=== PATIENT | female | born 1990 | race Caucasian/White ===

== ENCOUNTER 2019-02-28 10:26 | Emergency (ER) | payer OTHER ==
[~2019-02-28] VITALS: Ht 160 cm; Wt 33.0 kg
[~2019-02-28 10:26] MED LIST: ACET325T33 PO; DOCU-216 PO; IBUP800T48 PO
[2019-02-28 10:31] VITALS: Ht 160 cm; Wt 33.0 kg
[2019-02-28] MEDS ORDERED: KETOROLAC 30 MG INJ IV STA (11:33)
[2019-02-28] MEDS ORDERED: SOD CHLORIDE 0.9% 100 ML ONE (13:39)
[2019-02-28] MEDS ORDERED: IOHEXOL 100 ML ONE (13:39)
[2019-02-28] MEDS ORDERED: IBUP-1561 PO (15:25)
--- NOTE | 2019-02-28 15:31 | ERD ---
ER Documentation Chief Complaint Chief Complaint pt is bib family with c/o right sided rib pain since , no cause HPI 28-year-old female patient with a past medical history of ovarian cyst presents to the ED stating that she has some right-sided rib pain that started 3 days ago. Patient reports that she has some pleuritic chest pain. Describes her pain is sharp and is worse when she coughs or breathes. States that it throbs as well and rates it a 9 out of 10. Reports that he had she has not taking any medication. States that when she started to have this pain, she was less active. Denies any nausea, vomiting, diarrhea, abdominal pain, fever, chills. ROS All systems reviewed and are negative except as per history of present illness. Medications Home Meds Active Scripts Ibuprofen* (Motrin*) 400 Mg Tab, 400 MG PO Q6, #30 TAB Prov:IFRAH CHANG PA-C 02/28/19 Ibuprofen* (Motrin*) 800 Mg Tab, 800 MG PO Q6H PRN for MILD PAIN LEVEL 1-3 for 10 Days, TAB otc Prov:JEANETTE VARGAS MD 01/04/19 Docusate Sodium (Dok) 100 Mg Capsule, 100 MG PO BID PRN for CONSTIPATION for 10 Days, CAP Prov:JEANETTE VARGAS MD 01/04/19 Acetaminophen* (Tylenol*) 325 Mg Tablet, 650 MG PO Q6H PRN for .PAIN 1-3 OR TEMP for 7 Days, TAB Prov:JEANETTE VARGAS MD 01/04/19 Allergies Allergies: Coded Allergies: No Known Allergies (Unverified Allergy, Unknown, 02/28/19) PMhx/Soc Medical and Surgical Hx: pt denies Medical Hx, pt denies Surgical Hx History of Surgery: No Anesthesia Reaction: No Hx Respiratory Disorders: No Hx Cardiac Disorders: No Hx Psychiatric Problems: No Hx Miscellaneous Medical Probl: No Hx Alcohol Use: No Hx Substance Use: No Hx Tobacco Use: No Smoking Status: Never smoker FmHx Family History: No diabetes, No coronary disease Physical Exam Vitals Vital Signs Date Temp Pulse Resp B/P (MAP) Pulse Ox O2 O2 Flow FiO2 Time Delivery Rate 02/28/19 98.2 78 18 121/67 100 Room Air 15:34 (85) 02/28/19 100 Room Air 11:56 02/28/19 98.0 86 18 115/67 98 10:31 (83) Physical Exam Const: Bzo-uam-mtsahsdhr, well-nourished. In no acute distress. Head: Atraumatic, normocephalic Eyes: Normal Conjunctiva without injection. No purulent discharge. PERRL. EOMI ENT: Normal external ear. Ear canal without erythema. Tympanic membrane pearly schneider without effusion or bulging. Nasal canal clear with normal turbinates. Moist oropharynx without tonsillar exudates. Non-erythematous pharynx. Uvula midline. No drooling. No trismus. Neck: Full range of motion. No meningismus. No cervical lymphadenopathy. Resp: Clear to auscultation bilaterally. No wheezing, rhonchi, rales, or crackles. No accessory muscle use. No retractions. Cardio: Regular rate and rhythm. No murmurs, rubs or gallops. Abd: Soft, non tender, non distended. Normal bowel sounds. No palpable masses. No rebound tenderness. No guarding. Skin: No petechiae or rashes Back: No midline tenderness. No CVA tenderness. Ext: No cyanosis, or edema. Neur: Awake and alert. Psych: Normal Mood and Affect Results 24 hrs Laboratory Tests Test 02/28/19 11:44 02/28/19 11:49 White Blood Count 7.3 10^3/ul Red Blood Count 4.41 10^6/ul Hemoglobin 13.8 g/dl Hematocrit 42.6 % Mean Corpuscular Volume 96.6 fl Mean Corpuscular Hemoglobin 31.3 pg Mean Corpuscular Hemoglobin Concent 32.4 g/dl Red Cell Distribution Width 12.7 % Platelet Count 286 10^3/UL Mean Platelet Volume 10.5 fl Immature Granulocytes % 0.300 % Neutrophils % 75.1 % Lymphocytes % 17.4 % Monocytes % 5.9 % Eosinophils % 0.5 % Basophils % 0.8 % Nucleated Red Blood Cells % 0.0 /100WBC Immature Granulocytes # 0.020 10^3/ul Neutrophils # 5.5 10^3/ul Lymphocytes # 1.3 10^3/ul Monocytes # 0.4 10^3/ul Eosinophils # 0.0 10^3/ul Basophils # 0.1 10^3/ul Nucleated Red Blood Cells # 0.0 10^3/ul Prothrombin Time 12.3 Sec Prothrombin Time Ratio 1.0 INR International Normalized Ratio 0.90 Activated Partial Thromboplast Time 30.3 Sec D-Dimer 461.39 ng/ml D-Dimer Comment Sodium Level 142 mmol/L Potassium Level 4.4 mmol/L Chloride Level 106 mmol/L Carbon Dioxide Level 27 mmol/L Anion Gap 9 Blood Urea Nitrogen 23 mg/dl Creatinine 0.53 mg/dl Est Glomerular Filtrat Rate mL/min > 60 mL/min Glucose Level 75 mg/dl Calcium Level 9.3 mg/dl Troponin I < 0.012 ng/ml POC Beta HCG, Qualitative NEGATIVE Current Medications Medications Dose Sig/Haja Start Time Status Last (Trade) Ordered Route PRN Stop Time Admin Dose Reason Admin Ketorolac 30 mg ONCE STAT 02/28/19 DC 02/28/19 Tromethamine IV 11:33 11:59 (Toradol) 02/28/19 11:35 Sodium 100 ml @ ud STK-MED 02/28/19 DC 02/28/19 Chloride ONCE .ROUTE 13:39 14:19 02/28/19 13:40 Iohexol 100 ml @ ud STK-MED 02/28/19 DC 02/28/19 ONCE .ROUTE 13:39 14:19 02/28/19 13:40 Procedures/MDM 28-year-old female patient with a past medical history of ovarian cyst presents to ED complaining of right-sided rib pain, chest pain that started 3 days ago. Patient reports that she has been taking oral contraceptives. Patient is at high risk for a pulmonary embolism. PERC rule score was 1 therefore was unable to rule out pulmonary embolism at this time. Discussed with my supervising physician, Dr. Knight who agreed with the management discharge plan. Patient was further worked up with CBC, CMP, UA, urine , chest x-ray, dimer, EKG. Patient's pain and symptoms have improved after treatment with 30 mg IV Toradol. CBC: No leukocytosis. No e/o of systemic infection. No e/o anemia. CMP: No e/o severe acidosis, alkalosis, renal failure, diabetic ketoacidosis, liver disease Lipase within normal limits. Urine: No leukocyte esterase, no nitrites, no hematuria. Urine : Negative D-Dimer 431.6 EKG reviewed and interpreted by Dr. Knight Rate/Rhythm: [82 bpm, Normal Sinus Rhythm] No ectopy, no ST elevations, normal axis. QRS, ST, T-waves: [No changes consistent w/ acute ischemia] Impression: [No evidence of ischemia or arrhythmia] IMPRESSION: No pulmonary embolism. No thoracic aortic aneurysm or dissection. No pneumonia. IMPRESSION: No evidence for active cardiopulmonary disease. D Dimer was slightly elevated at the lower range of normal, therefore CTA was ordered since there is high suspicion of PE. CTA obtained - no evidence of PE. Differentials include pleurisy. Low suspicion for acute myocardial infarction, pneumothorax, pneumonia, cardiac tamponade, Nbdkw-Zpvwyhgln-Qhhpv Syndrome, Brugada Syndrome, AAA, aortic dissection, thoracic aortic dissection, endocarditis, myocarditis, pericarditis, cocaine-related ischemia, Boerhaave's syndrome, cardiac dysrhythmias,meningitis, intracranial bleed, seizure, stroke, TIA or other emergent conditions. Low suspicion for ectopic , ovarian torsion, gastritis, GERD, peptic ulcer disease, cholecystitis, choledocholithiasis, cholangitis, pancreatitis, appendicitis, bowel obstruction, ileus, volvulus, nephrolithiasis, pyelonephritis, hepatitis, perforated viscus, diverticulitis, strangulated/incarcerated hernia, DKA, acute abdomen, mesenteric ischemia or other emergent conditions. Patient appropriate for outpatient management. Diagnosis: Pleuritic Chest Pain Discharge medications: Ibuprofen Follow up with primary care physician in 1-2 days. Instructed patient to return to the ED sooner for any worsening symptoms. Patient's questions were answered. Patient is hemodynamically stable. Patient understood and agreed with discharge plan. Patient discharged stable. Disclaimer: Inadvertent spelling and grammatical errors are likely due to EHR/dictation software use and do not reflect on the overall quality of patient care. Also, please note that the electronic time recorded on this note does not necessarily reflect the actual time of the patient encounter. Departure Diagnosis: Primary Impression: Rib pain Additional Impression: Pleuritic chest pain Condition: Stable Patient Instructions: Costochondritis, Pleurisy Referrals: COMMUNITY CLINICS YOU HAVE RECEIVED A MEDICAL SCREENING EXAM AND THE RESULTS INDICATE THAT YOU DO NOT HAVE A CONDITION THAT REQUIRES URGENT TREATMENT IN THE EMERGENCY DEPARTMENT. FURTHER EVALUATION AND TREATMENT OF YOUR CONDITION CAN WAIT UNTIL YOU ARE SEEN IN YOUR DOCTORS OFFICE WITHIN THE NEXT 1-2 DAYS. IT IS YOUR RESPONSIBILITY TO MAKE AN [facility] IF YOU HAVE A PRIMARY DOCTOR --you should call your primary doctor and schedule an appointment IF YOU DO NOT HAVE A PRIMARY DOCTOR YOU CAN CALL OUR PHYSICIAN REFERRAL HOTLINE AT IF YOU CAN NOT AFFORD TO SEE A PHYSICIAN YOU CAN CHOSE FROM THE FOLLOWING [facility] [address] [facility] [address] [facility] [address] [facility] [address] [facility] [address] [facility] [facility] [address] [facility]. [facility] YOU HAVE RECEIVED A MEDICAL SCREENING EXAM AND THE RESULTS INDICATE THAT YOU DO NOT HAVE A CONDITION THAT REQUIRES URGENT TREATMENT IN THE EMERGENCY DEPARTMENT. FURTHER EVALUATION AND TREATMENT OF YOUR CONDITION CAN WAIT UNTIL YOU ARE SEEN IN YOUR DOCTORS OFFICE WITHIN THE NEXT 1-2 DAYS. IT IS YOUR RESPONSIBILITY TO MAKE AN APPOINTMENT FOR [facility]UP CARE. IF YOU HAVE A PRIMARY DOCTOR --you should call your primary doctor and schedule and appointment IF YOU DO NOT HAVE A PRIMARY DOCTOR YOU CAN CALL OUR PHYSICIAN REFERRAL HOTLINE AT . IF YOU CAN NOT AFFORD TO SEE A PHYSICIAN YOU CAN CHOSE FROM THE FOLLOWING [facility]: [facility] [address] [place] [address] [facility] [address] [place] [address] LOCATED WITHIN [facility] + [facility] [address] [place] [address] [facility] URGENT CARE/SPECIALTIES Additional Instructions: Call your primary care doctor TOMORROW for an appointment during the next 2-3 days.See the doctor sooner or return here if your condition worsens before your appointment time. IFRAH CHANG PA-C Feb 28, 2019 15:31
[2019-02-28 15:34] VITALS: BP 121/67; PULSE 78; RESP 18
== END 2019-02-28 15:34 | disposition home or self-care (01) ==
LOC: FTE 10:26
DX: R07.81 Pleurodynia (principal)
CPT/HCPCS: 36415; 71045; 71275; 80048; 81025; 84484; 85025; 85378; 85610; 85730; 93005; 96374; J1885; Q9967; Z7502; Z7610